=== PATIENT | female | born 1970 | race Caucasian/White ===

== ENCOUNTER → 2016-04-20 | Outpatient (CLI) | payer OTHER ==
[2016-04-20 17:25] LABS: ABSOLUTE EOSINOPHILS # (AUTO) 0.1 10^3/uL (0.0-0.6); ABSOLUTE LYMPHOCYTES (AUTO) 2.3 10^3/uL (0.5-4.7); ABSOLUTE MONOCYTES (AUTO) 0.4 10^3/uL (0.1-1.4); ABSOLUTE NEUT (AUTO) 2.2 10^3/uL (1.7-8.2); BASOPHILS % (AUTO) 0.7 % (0-2); EOSINOPHILS % (AUTO) 2.2 % (0-6); HEMATOCRIT 40.1 % (36.0-47.0); HEMOGLOBIN 13.5 g/dL (12.0-15.5); HGB HCT DIFFERENCE 0.4; MEAN CORPUSCULAR HEMOGLOBIN 32.2 pg (27.0-33.4); MEAN CORPUSCULAR HGB CONC 33.7 g/dL (32.0-36.0); MEAN CORPUSCULAR VOLUME 96 fl (80-97); MONOCYTES % (AUTO) 7.5 % (3-13); RED CELL DISTRIBUTION WIDTH 13.4 % (11.5-14.0); SEGMENTED NEUTROPHILS % (AUTO) 43.6 % (42-78); WHITE BLOOD COUNT 5.1 10^3/uL (4.0-10.5)
[2016-04-20 17:37] LABS: PROTHROMBIN TIME 13.1 SEC (11.4-15.4)
[2016-04-20 17:38] LABS: PARTIAL THROMBOPLASTIN TIME 28.6 SEC (23.5-35.8)
[2016-04-20 17:43] LABS: AMORPHOUS SEDIMENT,URINE TRACE /HPF; APPEARANCE,URINE SLIGHTLY-CLOUDY; BILIRUBIN,URINE NEGATIVE (NEGATIVE); CALCIUM OXALATE CRYSTALS,URINE FEW /HPF; GLUCOSE, URINE NEGATIVE (NEGATIVE); KETONES,URINE NEGATIVE (NEGATIVE); LEUKOCYTE ESTERASE,URINE NEGATIVE (NEGATIVE); NITRITE,URINE NEGATIVE (NEGATIVE); PROTEIN,URINE NEGATIVE (NEGATIVE); URINE SPECIFIC GRAVITY 1.028; UROBILINOGEN,URINE NEGATIVE mg/dL (<2.0)
== END ==
LOC: LAB 17:13
PROVIDERS: ATTEND Pain Medicine Interventional Pain Medicine
DX: G89.4 Chronic pain syndrome (principal)
CPT/HCPCS: 36415; 81001; 85025; 85610; 85730

== ENCOUNTER 2016-06-02 08:11 | Day surgery (SDC) | payer OTHER ==
[2016-05-27 12:33] LABS: AMORPHOUS SEDIMENT,URINE 1+ /HPF; APPEARANCE,URINE CLOUDY; BILIRUBIN,URINE NEGATIVE (NEGATIVE); GLUCOSE, URINE NEGATIVE (NEGATIVE); KETONES,URINE NEGATIVE (NEGATIVE); LEUKOCYTE ESTERASE,URINE NEGATIVE (NEGATIVE); NITRITE,URINE NEGATIVE (NEGATIVE); PROTEIN,URINE NEGATIVE (NEGATIVE); URINE SPECIFIC GRAVITY 1.023; UROBILINOGEN,URINE NEGATIVE mg/dL (<2.0)
[2016-05-27 12:33] LABS: HEMATOCRIT 37.5 % (36.0-47.0); HEMOGLOBIN 12.5 g/dL (12.0-15.5); MEAN CORPUSCULAR HEMOGLOBIN 32.3 pg (27.0-33.4); MEAN CORPUSCULAR HGB CONC 33.4 g/dL (32.0-36.0); MEAN CORPUSCULAR VOLUME 97 fl (80-97); RED BLOOD COUNT 3.88 10^6/uL (3.72-5.28); RED CELL DISTRIBUTION WIDTH 13.8 % (11.5-14.0); WHITE BLOOD COUNT 4.4 10^3/uL (4.0-10.5)
[2016-05-27 12:43] LABS: PARTIAL THROMBOPLASTIN TIME 28.5 SEC (23.5-35.8); PROTHROMBIN TIME 13.6 SEC (11.4-15.4)
--- NOTE | 2016-05-27 21:45 | EKG REPORT ---
SEVERITY:- NORMAL ECG - SINUS RHYTHM : Confirmed by: Georgi Beckman 27-May-2016 21:43:39
[~2016-06-02 08:11] MED LIST: CEFAZOLIN SODIUM 1 GM in DEXTROSE 5%-WATER 50 ML IV PRN; LACTATED RINGERS 1000 ML IV PRN; LIDOCAINE 0.5% INJ-PF (5 MG/ML) 50 ML SDV SUBCUT PRN
[2016-06-02] MEDS ORDERED: LIDOCAINE 1% INJ-PF (10 MG/ML) 30 ML SDV ONE ×2 (08:32→11:35)
[2016-06-02] MEDS ORDERED: BUPIVACAINE HCL 0.25% /EPINEPHRINE INJ/PF 30 ML SDV ONE ×2 (08:32→11:35)
[2016-06-02] MEDS ORDERED: SODIUM BICARBONATE 8.4% INJ 50 MEQ/50 ML DISP.SYRIN ONE (08:32)
[2016-06-02] MEDS: DEXTROSE 50%-WATER 25 GM/50 ML DISP.SYRIN IV ONE ×2 (10:30→10:47)
[2016-06-02] MEDS ORDERED: FENTANYL CITRATE INJ/PF 250 MCG/5 ML AMPULE ONE (10:42)
[2016-06-02] MEDS ORDERED: KETAMINE HCL INJ 500 MG/10 ML VIAL ONE (10:42)
[2016-06-02] MEDS ORDERED: DEXMEDETOMIDINE INJ 80 MCG/20 ML VIAL IV ONE (10:43)
[2016-06-02] MEDS ORDERED: PROPOFOL INJ 200 MG/20 ML VIAL IV ONE (10:43)
[2016-06-02] MEDS ORDERED: MIDAZOLAM 2 MG/2 ML INJ ONE (10:43)
[2016-06-02] MEDS ORDERED: NORMAL SALINE INJ/PF 0.9% 10 ML SDV INJ ONE (11:31)
[2016-06-02] MEDS ORDERED: MEPERIDINE HCL/PF INJ 25 MG/1 ML DISP.SYRIN IV PRN (11:41)
[2016-06-02] MEDS ORDERED: DIPHENHYDRAMINE HCL 50 MG/ML VIAL IV PRN (11:41)
[2016-06-02] MEDS ORDERED: PROMETHAZINE HCL INJ 25 MG/1 ML VIAL IV PRN ×2 (11:41)
[2016-06-02] MEDS ORDERED: MORPHINE SULFATE 10 MG/ML INJ IV PRN (11:41)
[2016-06-02] MEDS ORDERED: FENTANYL CITRATE INJ/PF 100 MCG/2 ML AMPUL IV PRN ×3 (11:41)
[2016-06-02] MEDS ORDERED: OXYCODONE-ACETAMINOPHEN 5-325 MG TABLET PO PRN ×2 (11:41)
[2016-06-02] MEDS ORDERED: CEFAZOLIN INJ 1 GM VIAL ONE (12:37)
[2016-06-02] MEDS ORDERED: HYDROCODONE/ACETAMINOPHEN 5-325 MG TABLET ONE (13:20)
--- NOTE | 2016-06-02 13:43 | OPERATIVE REPORT E ---
Operative Report NAME: KATARINA RAMOS : 1970 AGE: 45Y DATE OF SURGERY: 06/02/2016 ROOM: PREOPERATIVE DIAGNOSIS: Lumbar radiculopathy and chronic pain. POSTOPERATIVE DIAGNOSIS: Lumbar radiculopathy and chronic pain. PROCEDURES PERFORMED: Implantation of permanent spinal cord stimulating system and implantable pulse generator with dual octrode leads, [employer] system implanted. PRIMARY SURGEON: LA PRICE M.D. OFFICE MANAGER RECEPTIONIST: MAIRA GONZALEZ M.D. INTRAVENOUS FLUIDS: 1 L of balanced crystalloid solution. ESTIMATED BLOOD LOSS: 10 mL. ANTIBIOTICS: Ancef 1 gram given perioperatively. OPERATIVE FINDINGS: Two octrode leads placed from the bottom of T7 spanning to the top of T9. OPERATIVE INDICATIONS: The patient is a 45-year-old female with ongoing lumbar radiculopathy. She underwent successful trial with spinal cord stimulator system with [employer] a number of weeks back and elected to proceed with permanent implant. Risks and benefits of permanent implantation were discussed in detail, including, but not limited to, bleeding, bruising, infection, injury to nerves, arteries, veins, paralysis, loss of bowel or bladder dysfunction and potentially even . The patient expressed understanding and agreed to proceed. The patient was accompanied by the anesthesia staff to the operative suite. OPERATIVE DETAILS: The patient was positioned in a prone position. All pressure points were checked and padded. Standard ASA lines and monitors were applied. The planned incision site was marked using AP fluoroscopy. The patient was prepped and draped in sterile fashion using chlorhexidine gluconate solution, an Ioban drape, and a universal drape. C-arm was also draped into the field. The planned incision site was marked and anesthetized with buffered 1% lidocaine. Deeper tissues were infiltrated with 0.25% Bupivacaine and 1:100,000 epinephrine. Additionally, a right-sided buttock implantable pulse generator site was chosen and infiltrated with lidocaine and deeper tissues infiltrated with Bupivacaine as well. The skin was incised using an #15 blade scalpel and deep and electrocautery dissection were then utilized to expose the prevertebral fascia. Adequate hemostasis was ensured. A 3.5-inch 22-gauge spinal needle was advanced under intermittent fluoroscopic guidance to the tract. Plan for the Tuohy needle for insertion of leads. Subsequently, a Tuohy needle provided by the [employer] kit was advanced under intermittent AP fluoroscopic guidance to the L1-L2 interspace. Loss of resistance to the epidural space was gained through a saline technique. Once loss of resistance was obtained, the octrode lead provided by the [employer] kit was advanced into the epidural space and confirmed to be posterior with lateral fluoroscopic guidance. The procedure was performed in the exact same fashion on the left side with Touhy advanced to the L1-2 interspace and lead easily advanced. The leads were advanced under continuous fluoroscopic guidance to the bottom of the T7 vertebral body. Again, posterior placement was confirmed with lateral fluoroscopic views. At this juncture, the patient was awakened and testing of stimulation was performed with the help of a [employer] vendor representatives in the room. The patient had excellent stimulation in all painful areas. A pursestring suture was placed with 0 Mersilene. An additional stay suture for anchoring placed prior to needle and stylette removal from the lead. This was done through both octrode needle sites. The pursestring suture was tied around the anchor provided in the [employer] kit. Both anchors were affixed with no lead migration noted. Attention was then turned to the right buttock pocket, where a pocket for the implantable pulse generator was made with blunt and electrocautery dissection. This was noted to be adequately sized with the template provided in the kit. At this point, tunneling ensued from the midline to the pocket incision after anesthesia with buffered 1% lidocaine. The leads were attached to the implantable pulse generator and impedances were checked and noted to be appropriate. The leads were secured using a Hex wrench, affixing them to the IPG. Copious irrigation was performed with dilute Betadine solution in both incisions. Subsequently, closure ensued in an interrupted fashion with 3-0 Vicryl in deeper tissues. The buttock pocket skin was closed with Dermabond, tape and glue. The midline incision was closed with meaghan. The patient tolerated the procedure well and was accompanied to PACU in stable condition. She will be seen in followup at [facility] within 24 hours. DICTATING PHYSICIAN: LA PRICE M.D. [id number] PHY#: [id number] ID: [id number] JOB#: [id number] ACCT: [id number] cc:LA PRICE M.D. > PARAM
[2016-06-02] MEDS ORDERED: METOCLOPRAMIDE HCL INJ/PF 10 MG/2 ML SDV ONE (14:25)
[2016-06-02] MEDS ORDERED: LIDOCAINE 2% INJ-PF (20 MG/ML) 10 ML AMPUL ONE (14:25)
[2016-06-02] MEDS ORDERED: ONDANSETRON HCL INJ/PF 4 MG/2 ML SDV ONE (14:25)
[2016-06-02] MEDS ORDERED: GLYCOPYRROLATE INJ 0.4 MG/2 ML VIAL ONE (14:25)
[2016-06-02 14:29] VITALS: BP 121/74
== END 2016-06-02 14:15 | disposition home or self-care (01) ==
LOC: OROUT 08:11
PROVIDERS: ATTEND Pain Medicine Interventional Pain Medicine
PROC: 00HU3MZ Insertion of Neurostimulator Lead into Spinal Canal, Percutaneous Approach (ICD-10-PCS; 2016-06-02)
PROC: 0JH70MZ Insertion of Stimulator Generator into Back Subcutaneous Tissue and Fascia, Open Approach (ICD-10-PCS; principal; 2016-06-02 10:30)
DX: M54.17 Radiculopathy, lumbosacral region (principal); G89.4 Chronic pain syndrome; M51.36 Other intervertebral disc degeneration, lumbar region; M51.37 Other intervertebral disc degeneration, lumbosacral region; M54.16 Radiculopathy, lumbar region; M54.2 Cervicalgia; M79.7 Fibromyalgia; M96.1 Postlaminectomy syndrome, not elsewhere classified; M46.1 Sacroiliitis, not elsewhere classified; G43.109 Migraine with aura, not intractable, without status migrainosus; M53.3 Sacrococcygeal disorders, not elsewhere classified; F45.42 Pain disorder with related psychological factors; J45.909 Unspecified asthma, uncomplicated; E03.9 Hypothyroidism, unspecified; M19.90 Unspecified osteoarthritis, unspecified site; G47.9 Sleep disorder, unspecified; G43.909 Migraine, unspecified, not intractable, without status migrainosus; Z79.899 Other long term (current) drug therapy; Z79.891 Long term (current) use of opiate analgesic; Z88.5 Allergy status to narcotic agent; Z88.1 Allergy status to other antibiotic agents; Z91.040 Latex allergy status; Z98.84 Bariatric surgery status
CPT/HCPCS: 63650; 63685; C1820; 300; 36415; 71020; 72070; 81001; 81025; 82962; 85027; 85610; 85730; 93005; 93010; C1778; J0690; J2250; J2405; J2704; J2765; J3010; J3490

== ENCOUNTER → 2016-06-10 | Outpatient (CLI) | payer OTHER ==
[2016-06-10 13:41] LABS: ABSOLUTE EOSINOPHILS # (AUTO) 0.2 10^3/uL (0.0-0.6); ABSOLUTE LYMPHOCYTES (AUTO) 1.8 10^3/uL (0.5-4.7); ABSOLUTE MONOCYTES (AUTO) 0.3 10^3/uL (0.1-1.4); ABSOLUTE NEUT (AUTO) 1.6 10^3/uL (1.7-8.2); BASOPHILS % (AUTO) 0.5 % (0-2); EOSINOPHILS % (AUTO) 4.8 % (0-6); HEMATOCRIT 39.5 % (36.0-47.0); HEMOGLOBIN 12.8 g/dL (12.0-15.5); HGB HCT DIFFERENCE -1.1; LYMPHOCYTES % (AUTO) 45.9 % (13-45); MEAN CORPUSCULAR HEMOGLOBIN 31.4 pg (27.0-33.4); MEAN CORPUSCULAR HGB CONC 32.4 g/dL (32.0-36.0); MEAN CORPUSCULAR VOLUME 97 fl (80-97); MONOCYTES % (AUTO) 7.2 % (3-13); RED BLOOD COUNT 4.08 10^6/uL (3.72-5.28); RED CELL DISTRIBUTION WIDTH 14.2 % (11.5-14.0); SEGMENTED NEUTROPHILS % (AUTO) 41.6 % (42-78); WHITE BLOOD COUNT 3.9 10^3/uL (4.0-10.5)
[2016-06-10 14:18] LABS: ERYTHROCYTE SEDIMENTATION RATE 31 mm/hr (0-20)
== END ==
LOC: OD 11:38
PROVIDERS: ATTEND Pain Medicine Interventional Pain Medicine
DX: T81.4XXA Infection following a procedure, initial encounter (principal)
CPT/HCPCS: 36415; 85025; 85652; 86140

== ENCOUNTER → 2016-09-25 | Outpatient (CLI) | payer OTHER ==
[2016-09-25 14:48] LABS: ABSOLUTE EOSINOPHILS # (AUTO) 0.1 10^3/uL (0.0-0.6); ABSOLUTE LYMPHOCYTES (AUTO) 1.8 10^3/uL (0.5-4.7); ABSOLUTE MONOCYTES (AUTO) 0.3 10^3/uL (0.1-1.4); BASOPHILS % (AUTO) 0.3 % (0-2); EOSINOPHILS % (AUTO) 1.1 % (0-6); HEMATOCRIT 37.9 % (36.0-47.0); HEMOGLOBIN 12.3 g/dL (12.0-15.5); LYMPHOCYTES % (AUTO) 34.7 % (13-45); MEAN CORPUSCULAR HEMOGLOBIN 31.8 pg (27.0-33.4); MEAN CORPUSCULAR HGB CONC 32.5 g/dL (32.0-36.0); MEAN CORPUSCULAR VOLUME 98 fl (80-97); MONOCYTES % (AUTO) 5.4 % (3-13); RED BLOOD COUNT 3.87 10^6/uL (3.72-5.28); RED CELL DISTRIBUTION WIDTH 13.1 % (11.5-14.0); SEGMENTED NEUTROPHILS % (AUTO) 58.5 % (42-78); WHITE BLOOD COUNT 5.1 10^3/uL (4.0-10.5)
[2016-09-25 14:53] LABS: PROTHROMBIN TIME 13.8 SEC (11.4-15.4)
[2016-09-25 14:54] LABS: APPEARANCE,URINE CLOUDY; BILIRUBIN,URINE NEGATIVE (NEGATIVE); GLUCOSE, URINE NEGATIVE (NEGATIVE); KETONES,URINE NEGATIVE (NEGATIVE); LEUKOCYTE ESTERASE,URINE NEGATIVE (NEGATIVE); NITRITE,URINE NEGATIVE (NEGATIVE); PROTEIN,URINE NEGATIVE (NEGATIVE); URINE SPECIFIC GRAVITY 1.021
== END ==
LOC: LAB 14:24
PROVIDERS: ATTEND Pain Medicine Interventional Pain Medicine
DX: T85.122D Displacement of implanted electronic neurostimulator of spinal cord electrode (lead), subsequent encounter (principal)
CPT/HCPCS: 36415; 81001; 85025; 85610; 85730

== ENCOUNTER 2016-09-29 07:45 | Day surgery (SDC) | payer OTHER ==
[~2016-09-29 07:45] MED LIST changes: +BUPIVACAINE HCL 0.25% /EPINEPHRINE INJ/PF 30 ML SDV ONE; +CEFAZOLIN 1 GM/D5W RTU 1 GM/50 ML RTUPB IV PRN; -CEFAZOLIN SODIUM 1 GM in DEXTROSE 5%-WATER 50 ML IV PRN; -LACTATED RINGERS 1000 ML IV PRN; -LIDOCAINE 0.5% INJ-PF (5 MG/ML) 50 ML SDV SUBCUT PRN; +LIDOCAINE 1% INJ-PF (10 MG/ML) 30 ML SDV ONE; +RINGERS SOLUTION,LACTATED 1,000 ML IV PRN; +SODIUM BICARBONATE 8.4% INJ 50 MEQ/50 ML DISP.SYRIN ONE
[2016-09-29] MEDS ORDERED: FENTANYL CITRATE INJ/PF 100 MCG/2 ML AMPUL ONE ×3 (09:08→11:36)
[2016-09-29] MEDS ORDERED: MIDAZOLAM 2 MG/2 ML INJ ONE ×2 (09:08→09:09)
[2016-09-29] MEDS ORDERED: PROPOFOL INJ 200 MG/20 ML VIAL IV ONE (09:09)
[2016-09-29] MEDS ORDERED: MORPHINE SULFATE 10 MG/ML INJ ONE (09:09)
[2016-09-29] MEDS ORDERED: HYDROMORPHONE HCL INJ/PF 2 MG/ML AMPULE ONE (09:13)
[2016-09-29] MEDS ORDERED: PROMETHAZINE HCL INJ 25 MG/1 ML VIAL IV PRN ×2 (09:41)
[2016-09-29] MEDS ORDERED: MEPERIDINE HCL/PF INJ 25 MG/1 ML DISP.SYRIN IV PRN (09:41)
[2016-09-29] MEDS ORDERED: DIPHENHYDRAMINE HCL 50 MG/ML VIAL IV PRN (09:41)
[2016-09-29] MEDS ORDERED: FENTANYL CITRATE INJ/PF 100 MCG/2 ML AMPUL IV PRN ×3 (09:41)
[2016-09-29] MEDS ORDERED: DEXAMETHASONE SOD PHOSPHATE INJ 4 MG/1 ML VIAL ONE ×2 (10:12→14:15)
[2016-09-29] MEDS ORDERED: ONDANSETRON HCL INJ/PF 4 MG/2 ML SDV ONE ×2 (10:12→14:15)
[2016-09-29] MEDS ORDERED: CEFAZOLIN INJ 1 GM VIAL ONE (11:36)
[2016-09-29] MEDS ORDERED: HYDROCODONE/ACETAMINOPHEN 10-325 MG TABLET PO PRN (11:40)
--- NOTE | 2016-09-29 12:04 | OPERATIVE REPORT E ---
Operative Report NAME: KATARINA RAMOS : 1970 AGE: 46Y DATE OF SURGERY: 09/29/2016 ROOM: PREOPERATIVE DIAGNOSIS: Failure/lead migration of spinal cord simulator implant. POSTOPERATIVE DIAGNOSIS: Failure/lead migration of spinal cord stimulator implant. PROCEDURE PERFORMED: Revision of [employer] spinal cord stimulator system with replacement of lead. SURGEON: LA PRICE M.D. IV ANTIBIOTICS: Ancef 1 gram given perioperatively. ANESTHESIA: MAC with sedation. ESTIMATED BLOOD LOSS: Five mL. SPECIMENS REMOVED: Previously placed left lead was removed and discarded and replaced. OPERATIVE FINDINGS: Dual-Octrode leads placed at the bottom of T7 extending to the top of T10. OPERATIVE INDICATIONS: Patient is a 46-year-old female with lumbar radiculopathy. She had previously undergone excellent trial of spinal cord stimulation for pain and had permanent spinal cord stimulator implanted. The patient had an incident where she felt a pop in her back and unfortunately one of her leads migrated quite cephalad from its original position, and therefore, she lost stimulation. As such, decision was made to revise spinal cord stimulator leads with replacement of the left lead. Risks and benefits were discussed with the patient in detail, including but not limited to bleeding, bruising, infection and notably a higher risk of infection with revision than with initial implant, loss of bowel or bladder function, paralysis, and potentially even . The patient expressed understanding and agreed to proceed with the procedure. OPERATIVE DETAIL: The patient was accompanied by anesthesia staff to the operating suite where she was placed in prone position. All pressure points were checked and padded. Standard ASA lines and monitors were applied. The patient was prepped and draped in sterile fashion using DuraPrep solution with iodine and alcohol, given an allergy to chlorhexidine solution. The patient was draped using an Ioban drape and [place] drape. The C-arm was also sterilely draped into the operative field. The leads were visualized under AP fluoroscopy and notably one of the leads was noted to be fractured. Planned incision site was marked on the skin after a time-out procedure was performed as per [facility] standards. The skin was incised after anesthesia with 1% buffered lidocaine over the skin using a 25-gauge needle. Deeper tissues were infiltrated with 0.25% bupivacaine with 1:100,000 epinephrine. Incision was made and notably no electrocautery was used during this portion of the procedure. The leads were easily visualized. The right anchor was noted to be in place and secured, though the silicone portion of the tubular anchor had migrated off of the metallic portion, but the metallic portion was well in place. This was replaced and sutured down. The left-sided lead anchor was noted also to be no longer holding the lead. The lead was easily removed from the epidural space and the anchor and lead were both discarded. At this point, the buttock pocket was additionally opened, as there was no movement of the lead through the anchor and the lead was removed. The skin likewise there was anesthetized with 1% buffered lidocaine and deeper tissues with 0.25% bupivacaine. The IPG was easily removed from the pocket and leads were detached. A spinal needle was advanced for anesthesia to the L1-L2 interspace and the tract for planned lead insertion was anesthetized with 1% lidocaine. Subsequently, a 16-gauge Tuohy needle provided by the [employer] kit was advanced under intermittent AP and lateral fluoroscopic guidance to the L1-L2 interspace and loss of resistance was obtained using normal saline. The lead provided by [employer] was advanced through the Tuohy needle into the posterior epidural space, though some resistance was met at this point. The lead was removed and the needle repositioned and lead then advanced smoothly and was advanced to the top of the T8 vertebral body to the left of the initial lead. At this point, the lead were tested with a [employer] environmental marketing representative and notably all stimulation was found to be on the left of the patient. At this point, decision was made to pull the left-sided lead back and cross to the right to attain better spinal cord stimulation. Multiple attempts were made with standard a standard lead and Stylet. The Stylet was replaced for a stiffer Stylet, but still unable to advance the lead to the right side easily. As such, the lead was removed and at this point a stiff introducer wire was advanced through the needle easily to the right of the previous lead to the top of the T8 interspace. The needle was removed over the introducer wire and subsequently an Introde was placed and easily advanced. The introducer wire was then removed and the original Octrode lead from [employer] was replaced through the Introde. At this point, testing was again performed and the patient had excellent stimulation at all painful areas. The Introde was removed under continuous fluoroscopic guidance to ensure no migration of the lead. Final radiographs confirmed posterior placement of both spinal cord stimulator leads. A pursestring suture was placed with 0 Mersilene around the newly implanted lead and an additional stay suture placed with 0 Mersilene. A new anchor was advanced over the lead and pursestring suture was tied prior to insertion of the anchor into the fascia. The anchor was then secured to the fascia using the pursestring suture and additional 0 Mersilene lead. At this point, the incision was copiously irrigated with dilute Betadine solution. The tunneling device provided by the [facility] [facility] was then utilized to tunnel a tract from the pocket site to the midline incision. The lead were advanced through the tunneling device and connected to the implantable pulse generator. Impedances were noted to be sufficient. Both incisions were then copiously irrigated again with dilute Betadine solution. The leads in the midline of the back were lightly secured using 3-0 Vicryl Pop Offs and the skin incisions were closed using 3-0 Vicryl in interrupted fashion. The midline incision on the back had a dual layer closure. A single layer closure was performed over the implantable pulse generator site. Skin was then subsequently closed with meaghan. The incision sites were dressed with Telfa and gauze, as well as paper tape to avoid further skin irritation. The patient tolerated the procedure well and was accompanied by anesthesia to the postanesthesia recovery unit in stable condition. She will follow up tomorrow postoperatively for wound check at [facility]. DICTATING PHYSICIAN: LA PRICE M.D. [id number] [facility]#: [id number] ID: [id number] JOB#: [id number] ACCT: [id number] cc:LA PRICE M.D. >
--- NOTE | 2016-09-29 12:30 | RADIOLOGY REPORT (SQ) ---
EXAM DESCRIPTION: NO CHG FLUORO; L SPINE 2 VIEWS COMPLETED DATE/TIME: 09/29/2016 11:03 am REASON FOR STUDY: SPINAL STIMULATOR REVISION COMPARISON: MR 03/26/2014 FLUOROSCOPY TIME: 11.2 minutes RADIATION DOSE: 104 mGy. LIMITATIONS: None. PROCEDURE: Images obtained with fluoro document placement of neural stimulator electrodes in the tho racic spine. FINDINGS: Neural stimulator electrodes are placed in the thoracic spine. IMPRESSION: Placement of neural stimulator electrodes. COMMENT: PQRS 6045F: Fluoroscopy time of the procedure is documented in the report. TECHNICAL DOCUMENTATION: JOB ID: [id number] [employer]- All Rights Reserved
--- NOTE | 2016-09-29 12:30 | RADIOLOGY REPORT (SQ) ---
EXAM DESCRIPTION: NO CHG FLUORO; L SPINE 2 VIEWS COMPLETED DATE/TIME: 09/29/2016 11:03 am REASON FOR STUDY: SPINAL STIMULATOR REVISION COMPARISON: MR 03/26/2014 FLUOROSCOPY TIME: 11.2 minutes RADIATION DOSE: 104 mGy. LIMITATIONS: None. PROCEDURE: Images obtained with fluoro document placement of neural stimulator electrodes in the tho racic spine. FINDINGS: Neural stimulator electrodes are placed in the thoracic spine. IMPRESSION: Placement of neural stimulator electrodes. COMMENT: PQRS 6045F: Fluoroscopy time of the procedure is documented in the report. TECHNICAL DOCUMENTATION: JOB ID: [id number] [employer]- All Rights Reserved
[2016-09-29 16:16] VITALS: BP 95/59
== END 2016-09-29 14:05 | disposition home or self-care (01) ==
LOC: OROUT 07:45
PROVIDERS: ATTEND Pain Medicine Interventional Pain Medicine
PROC: 00HU3MZ Insertion of Neurostimulator Lead into Spinal Canal, Percutaneous Approach (ICD-10-PCS; 2016-09-29)
PROC: 0JH70MZ Insertion of Stimulator Generator into Back Subcutaneous Tissue and Fascia, Open Approach (ICD-10-PCS; principal; 2016-09-29 09:30)
DX: M54.17 Radiculopathy, lumbosacral region (principal); R53.1 Weakness; G43.909 Migraine, unspecified, not intractable, without status migrainosus; G40.909 Epilepsy, unspecified, not intractable, without status epilepticus; J45.909 Unspecified asthma, uncomplicated; E03.9 Hypothyroidism, unspecified; E53.8 Deficiency of other specified B group vitamins; Z79.899 Other long term (current) drug therapy; Z98.84 Bariatric surgery status; Z88.3 Allergy status to other anti-infective agents; Z91.040 Latex allergy status; Z88.5 Allergy status to narcotic agent
CPT/HCPCS: 63685; 63650; 72100; C1778; J2250; J3490 ×3; J0690 ×2; J1100; J3010; J1170; J2405; J2704; 300; J2270

== ENCOUNTER → 2017-01-29 | Outpatient (CLI) | payer OTHER | LOC: RAD 16:16 | PROVIDERS: ATTEND Specialist | DX: Z53.9 Procedure and treatment not carried out, unspecified reason (principal) ==

== ENCOUNTER → 2017-02-18 | Outpatient (CLI) | payer OTHER ==
--- NOTE | 2017-02-18 17:22 | RADIOLOGY REPORT (SQ) ---
EXAM DESCRIPTION: CT HEAD COMBO COMPLETED DATE/TIME: 02/18/2017 3:54 pm REASON FOR STUDY: SEIZURES G40.009 LOCAL-REL IDIO EPI W SEIZ OF LOC ONST,NOT NTRCT,W/O COMPARISON: None. TECHNIQUE: Axial images acquired through the brain without and with intravenous contrast. Images re viewed with bone, brain and subdural windows. Images stored on PACS. All CT scanners at this facility use dose modulation, iterative reconstruction, and/or weight based d osing when appropriate to reduce radiation dose to as low as reasonably achievable (ALARA). [facility]: Dose Right [facility]: CareDose [facility]: Dose Right [facility]: Teradose 4D [facility]: Cadec Global CONTRAST TYPE AND DOSE: contrast/concentration: Isovue 370.00 mg/ml; Total Contrast Delivered: 50.0 ml; Total Saline Delivered: 55.0 ml RENAL FUNCTION: Creatinine 0.7 RADIATION DOSE: Up-to-date CT equipment and radiation dose reduction techniques were employed. CTDIv ol: 49.0 mGy. DLP: 1762 mGy-cm.. LIMITATIONS: None. FINDINGS: VENTRICLES: Normal size and contour. CEREBRUM: No masses. No hemorrhage. No midline shift. Normal roach/white matter differentiation. No ev idence for acute infarction. No enhancing lesions. CEREBELLUM: No masses. No hemorrhage. No alteration of density. No evidence for acute infarction. No enhancing lesions. EXTRA-AXIAL SPACES: No fluid collections. No enhancing lesions. ORBITS AND GLOBE: No intra- or extraconal masses. Normal contour of globe without masses. CALVARIUM: No fracture. PARANASAL SINUSES: No fluid or mucosal thickening. SOFT TISSUES: No mass or hematoma. OTHER: No other significant finding. IMPRESSION: NORMAL BRAIN CT WITHOUT AND WITH CONTRAST. EVIDENCE OF ACUTE STROKE: NO. TECHNICAL DOCUMENTATION: JOB ID: [id number] Quality ID # [id number]: Final reports with documentation of one or more dose reduction techniques (e.g., Au tomated exposure control, adjustment of the mA and/or kV according to patient size, use of iterative reconstruction technique) 2010 [employer]- All Rights Reserved
== END ==
LOC: RAD 15:10
PROVIDERS: ATTEND Specialist
DX: G40.009 Localization-related (focal) (partial) idiopathic epilepsy and epileptic syndromes with seizures of localized onset, not intractable, without status epilepticus (principal)
CPT/HCPCS: 70470; 82565

== ENCOUNTER 2017-11-03 16:26 | Emergency (ER) | payer BC, OTHER ==
[2017-11-03] MEDS ORDERED: FENTANYL CITRATE INJ/PF 100 MCG/2 ML AMPUL IV ONE (16:56)
[2017-11-03] MEDS ORDERED: METOCLOPRAMIDE HCL ORAL SOLN 10 MG/10 ML UDCUP PO ONE (16:56)
--- NOTE | 2017-11-03 16:59 | ER Document Report ---
ED Medical Screen (RME) - General Chief Complaint: Abdominal Pain Stated Complaint: ABDOMINAL PAIN Time Seen by Provider: 11/03/17 16:53 Notes: 47 years old female who had cholecystectomy done on last Wednesday presents today with persistent pain since then and increased in intensity today. Associated with nausea. No fever chills or diarrhea. Did not have any bowel movement or gas. She is on pain clinic management for low back pain. TRAVEL OUTSIDE OF THE [place] IN LAST 30 DAYS: No - Related Data Allergies/Adverse Reactions: acetaminophen [From Percocet] Allergy (Severe, Verified 11/03/17 16:29) rash ciprofloxacin [From Cipro] Allergy (Severe, Verified 11/03/17 16:29) rash ibuprofen Allergy (Severe, Verified 11/03/17 16:29) ? latex Allergy (Severe, Verified 11/03/17 16:29) swelling morphine Allergy (Severe, Verified 11/03/17 16:29) ? oxycodone [From Percocet] Allergy (Severe, Verified 11/03/17 16:29) rash Past Medical History - Past Medical History Cardiac Medical History: Denies: Hx Coronary Artery Disease, Hx Heart Attack, Hx Hypertension Pulmonary Medical History: Denies: Hx Asthma, Hx Bronchitis, Hx COPD, Hx Pneumonia Neurological Medical History: Denies: Hx Cerebrovascular Accident, Hx Seizures Renal/ Medical History: Denies: Hx Peritoneal Dialysis Musculoskeltal Medical History: Reports Hx Arthritis - back Past Surgical History: Reports: Hx Abdominal Surgery - GBP, Hx Section , Hx Cholecystectomy, Hx Tonsillectomy - Immunizations Hx Diphtheria, Pertussis, Tetanus Vaccination: Yes Physical Exam - Vital signs Vitals: Temp Pulse Resp BP Pulse Ox 98.4 F 116 H 20 110/67 98 11/03/17 16:32 11/03/17 16:32 11/03/17 16:32 11/03/17 16:32 11/03/17 16:32 Course - Vital Signs Vital signs: Temp Pulse Resp BP Pulse Ox 98.4 F 116 H 20 110/67 98 11/03/17 16:32 11/03/17 16:32 11/03/17 16:32 11/03/17 16:32 11/03/17 16:32 Doctor's Discharge - Discharge Referrals: NI OLIVARES PA [Primary Care Provider] - Follow up as needed
--- NOTE | 2017-11-03 17:58 | RADIOLOGY REPORT (SQ) ---
EXAM DESCRIPTION: ACUTE ABDOMEN SERIES COMPLETED DATE/TIME: 11/03/2017 5:43 pm REASON FOR STUDY: Postsurgical abdominal pain COMPARISON: None. NUMBER OF VIEWS: Three views. TECHNIQUE: Frontal chest, supine abdomen and upright/decubitus abdomen radiographic images acquired. LIMITATIONS: None. FINDINGS: CHEST: Lungs clear of infiltrates. FREE AIR: None. No abnormal gas collections. BOWEL GAS PATTERN: Multiple mildly prominent loops of small bowel are seen within the left hemiabdome n without evidence of high-grade obstruction. No air-fluid levels. Gas and stool are seen to the le young of the rectum. CALCIFICATIONS: No suspicious calcifications. HARDWARE: Thoracic neurostimulator device is present. Cholecystectomy clips are present. SOFT TISSUES: No gross mass or suggestion of organomegaly. BONES: No acute fracture. No worrisome bone lesions. OTHER: No other significant finding. IMPRESSION: Multiple mildly prominent loops of small bowel without evidence of high-grade obstructio n. Given postsurgical setting, favor ileus. TECHNICAL DOCUMENTATION: JOB ID: [id number] [employer]- All Rights Reserved Reading location - IP/workstation name: [email or web address]
[2017-11-03] MEDS ORDERED: NORMAL SALINE 1000 ML 1,000 ML IV ONE (18:30)
[2017-11-03 18:41] LABS: HEMATOCRIT 42.2 % (36.0-47.0); HEMOGLOBIN 13.9 g/dL (12.0-15.5); MEAN CORPUSCULAR HEMOGLOBIN 31.2 pg (27.0-33.4); MEAN CORPUSCULAR VOLUME 94 fl (80-97); PLATELET COUNT 353 10^3/uL (150-450); RED BLOOD COUNT 4.47 10^6/uL (3.72-5.28); RED CELL DISTRIBUTION WIDTH 15.9 % (11.5-14.0); WHITE BLOOD COUNT 22.7 10^3/uL (4.0-10.5)
[2017-11-03 18:51] LABS: APPEARANCE,URINE SLIGHTLY-CLOUDY; BILIRUBIN,URINE NEGATIVE (NEGATIVE); GLUCOSE, URINE NEGATIVE (NEGATIVE); KETONES,URINE TRACE mg/dL (NEGATIVE); LEUKOCYTE ESTERASE,URINE NEGATIVE (NEGATIVE); NITRITE,URINE NEGATIVE (NEGATIVE); PROTEIN,URINE 100 mg/dL (NEGATIVE); URINE SPECIFIC GRAVITY 1.023
[2017-11-03 18:53] LABS: COLOR,URINE YELLOW
[2017-11-03 19:01] LABS: ALANINE AMINOTRANSFERASE 24 U/L (9-52); ALBUMIN 4.4 g/dL (3.5-5.0); ALKALINE PHOSPHATASE 86 U/L (38-126); ANION GAP 15 (5-19); ASPARTATE AMINO TRANSFERASE 20 U/L (14-36); BILIRUBIN,DIRECT 0.4 mg/dL (0.0-0.4); BLOOD UREA NITROGEN 17 mg/dL (7-20); CARBON DIOXIDE 24 mmol/L (22-30); CHLORIDE 104 mmol/L (98-107); GLUCOSE 118 mg/dL (75-110); POTASSIUM 3.9 mmol/L (3.6-5.0); SODIUM 143.2 mmol/L (137-145); TOTAL PROTEIN 8.1 g/dL (6.3-8.2)
[2017-11-03 19:02] LABS: ABSOLUTE LYMPHOCYTES# (MANUAL) 0.9 10^3/uL (0.5-4.7); ABSOLUTE MONOCYTES # (MANUAL) 1.6 10^3/uL (0.1-1.4); ABSOLUTE NEUTROPHILS# (MANUAL) 20.2 10^3/uL (1.7-8.2); ANISOCYTOSIS SLIGHT; BASOPHILS % (MANUAL) 0 % (0-2); EOSINOPHILS % (MANUAL) 0 % (0-6); LIPASE < 10.0 U/L (23-300); LYMPHOCYTES % (MANUAL) 4 % (13-45); MONOCYTES % (MANUAL) 7 % (3-13); PLATELET COMMENT ADEQUATE; SEGMENTED NEUTROPHILS % (MAN) 89 % (42-78); TOTAL CELLS COUNTED 100; TOXIC GRANULATION SLIGHT
[2017-11-03] MEDS ORDERED: ONDANSETRON 4 MG TAB.RAPDIS SL ONE (19:09)
--- NOTE | 2017-11-03 21:03 | ER Document Report ---
ED GI/ - General Chief Complaint: Abdominal Pain Stated Complaint: ABDOMINAL PAIN Time Seen by Provider: 11/03/17 16:53 Mode of Arrival: Ambulatory Information source: Patient TRAVEL OUTSIDE OF THE [place] IN LAST 30 DAYS: No - HPI Patient complains to provider of: Abdominal pain, Vomiting Onset: Last week Timing/Duration: Persistent, Worse Quality of pain: Achy, Fullness, Pressure Severity at maximum: Severe Severity in ED: Severe Pain Level: 5 Location: Epigastric, RUQ Associated symptoms: Nausea, Vomiting Exacerbated by: Movement, Food Relieved by: Denies Similar symptoms previously: Yes Notes: 11/03/17 21:01 Patient is a 47-year-old female presenting to the emergency room complaining of worsening right upper quadrant abdominal pain with nausea and vomiting, patient had a laparoscopic cholecystectomy at [facility] in [place] on Wednesday, she was told by the surgeon to follow-up with her interior painter for appropriate pain control which she did, they prescribed her Dilaudid but she reports that her pain has worsened today, pain is in the right upper quadrant and epigastric region, she denies any fevers, no wound dehiscence, she has not had a bowel movement since her surgery which is not unusual for her, she denies any dysuria or hematuria - Related Data Allergies/Adverse Reactions: acetaminophen [From Percocet] Allergy (Severe, Verified 11/03/17 16:29) rash ciprofloxacin [From Cipro] Allergy (Severe, Verified 11/03/17 16:29) rash ibuprofen Allergy (Severe, Verified 11/03/17 16:29) ? latex Allergy (Severe, Verified 11/03/17 16:29) swelling morphine Allergy (Severe, Verified 11/03/17 16:29) ? oxycodone [From Percocet] Allergy (Severe, Verified 11/03/17 16:29) rash Past Medical History - General Information source: Patient - Social History Smoking Status: Never Smoker Family History: Reviewed & Not Pertinent Patient has suicidal ideation: No Patient has homicidal ideation: No - Past Medical History Cardiac Medical History: Denies: Hx Coronary Artery Disease, Hx Heart Attack, Hx Hypertension Pulmonary Medical History: Denies: Hx Asthma, Hx Bronchitis, Hx COPD, Hx Pneumonia Neurological Medical History: Denies: Hx Cerebrovascular Accident, Hx Seizures Renal/ Medical History: Denies: Hx Peritoneal Dialysis Musculoskeletal Medical History: Reports Hx Arthritis - back Past Surgical History: Reports: Hx Abdominal Surgery - GBP, Hx Section , Hx Cholecystectomy, Hx Tonsillectomy - Immunizations Hx Diphtheria, Pertussis, Tetanus Vaccination: Yes Review of Systems - Review of Systems Constitutional: No symptoms reported EENT: No symptoms reported Cardiovascular: No symptoms reported Respiratory: No symptoms reported Gastrointestinal: See HPI Genitourinary: No symptoms reported Female Genitourinary: No symptoms reported Musculoskeletal: No symptoms reported Skin: No symptoms reported Hematologic/Lymphatic: No symptoms reported Neurological/Psychological: No symptoms reported -: Yes All other systems reviewed and negative Physical Exam - Vital signs Vitals: Temp Pulse Resp BP Pulse Ox 98.4 F 116 H 20 110/67 98 11/03/17 16:32 11/03/17 16:32 11/03/17 16:32 11/03/17 16:32 11/03/17 16:32 Interpretation: Tachycardic - General General appearance: Alert - HEENT Head: Normocephalic, Atraumatic Eyes: Normal Pupils: PERRL - Respiratory Respiratory status: No respiratory distress Chest status: Nontender Breath sounds: Normal Chest palpation: Normal - Cardiovascular Rhythm: Regular Heart sounds: Normal auscultation Murmur: No - Abdominal Inspection: Fresh incision - Laparoscopic incisions with skin adhesive glue in place, clean dry and intact, no erythema Distension: No distension Bowel sounds: Normal Tenderness: Tender - Right upper quadrant and epigastric Organomegaly: No organomegaly - Back Back: Normal, Nontender - Extremities General upper extremity: Normal inspection, Nontender, Normal color, Normal ROM , Normal temperature General lower extremity: Normal inspection, Nontender, Normal color, Normal ROM , Normal temperature, Normal weight bearing. No: Donte's sign - Neurological Neuro grossly intact: Yes Cognition: Normal Orientation: AAOx4 De Coma Scale Eye Opening: Spontaneous Sherborn Coma Scale Verbal: Oriented Sherborn Coma Scale Motor: Obeys Commands De Coma Scale Total: 15 Speech: Normal Motor strength normal: LUE, RUE, LLE, RLE Sensory: Normal - Psychological Associated symptoms: Normal affect, Normal mood - Skin Skin Temperature: Warm Skin Moisture: Dry Skin Color: Normal Course - Re-evaluation Re-evalutation: 11/03/17 22:47 A call was placed to [facility], requested callback from on-call surgeon for Dr. Landon Received a call from Dr. Landon, lab and imaging findings were discussed as well as patient's current condition which is consistent with continued pain that I have been unable to control with large amounts of IV narcotic medications , therefore patient will be transferred to [facility] under Dr. Landon's care, this plan was discussed with patient at bedside as well and she is in agreement - Vital Signs Vital signs: Temp Pulse Resp BP Pulse Ox 98.4 F 116 H 20 110/67 98 11/03/17 16:32 11/03/17 16:32 11/03/17 16:32 11/03/17 16:32 11/03/17 16:32 - Laboratory Result Diagrams: 11/03/17 18:05 11/03/17 18:05 Laboratory results interpreted by me: 11/03/17 11/03/17 11/03/17 18:05 18:05 18:05 WBC 22.7 H RDW 15.9 H Seg Neuts % (Manual) 89 H Lymphocytes % (Manual) 4 L Abs Neuts (Manual) 20.2 H Abs Monocytes (Manual) 1.6 H Glucose 118 H Lipase < 10.0 L Urine Protein 100 H Urine Ketones TRACE H Urine Blood MODERATE H Urine Urobilinogen 2.0 H - Diagnostic Test Radiology reviewed: Image reviewed, Reports reviewed Discharge - Discharge Clinical Impression: Abdominal pain Qualifiers: Abdominal location: right upper quadrant Qualified Code(s): R10.11 - Right upper quadrant pain Condition: Stable Disposition: [facility] Referrals: NI OLIVARES PA [NO LOCAL MD] - Follow up as needed
--- NOTE | 2017-11-03 22:11 | RADIOLOGY REPORT (SQ) ---
EXAM DESCRIPTION: CT ABD/PELVIS WITH IV ONLY COMPLETED DATE/TIME: 11/03/2017 9:44 pm REASON FOR STUDY: ruq pain, recent lap jessica COMPARISON: None. TECHNIQUE: CT scan of the abdomen and pelvis performed using helical scanning technique with dynamic intravenous contrast injection. No oral contrast. Images reviewed with lung, soft tissue, and bone windows. Reconstructed coronal and sagittal MPR images reviewed. Delayed images for evaluation of the urinary system also acquired. All images stored on PACS. All CT scanners at this facility use dose modulation, iterative reconstruction, and/or weight based d osing when appropriate to reduce radiation dose to as low as reasonably achievable (ALARA). [facility]: Dose Right [facility]: CareDose [facility]: Dose Right [facility]: Teradose 4D [facility]: [employer] CONTRAST TYPE AND DOSE: contrast/concentration: Isovue 370.00 mg/ml; Total Contrast Delivered: 74.0 ml; Total Saline Delivered: 31.0 ml RENAL FUNCTION: None required. The patient is less than 50 years old. RADIATION DOSE: CT Rad equipment meets quality standard of care and radiation dose reduction techniq ues were employed. CTDIvol: 10.0 mGy. DLP: 1106 mGy-cm.. LIMITATIONS: None. FINDINGS: LOWER CHEST: There is a small right-sided pleural effusion present. LIVER: Normal size. No masses. No dilated ducts. There is a fluid collection anterior and superior to the liver. SPLEEN: Normal size. No focal lesions. PANCREAS: No masses. No significant calcifications. No adjacent inflammation or peripancreatic fluid collections. Pancreatic duct not dilated. GALLBLADDER: Surgically absent. ADRENAL GLANDS: No significant masses or asymmetry. RIGHT KIDNEY AND URETER: No solid masses. No significant calcifications. No hydronephrosis or hyd roureter. LEFT KIDNEY AND URETER: No solid masses. No significant calcifications. No hydronephrosis or hydr oureter. AORTA AND VESSELS: No aneurysm. No dissection. Renal arteries, SMA, celiac without stenosis. RETROPERITONEUM: No retroperitoneal adenopathy, hemorrhage or masses. BOWEL AND PERITONEAL CAVITY: There are multiple prominent fluid-filled loops of bowel however no kallie k obstruction is present. APPENDIX: Normal. PELVIS: No mass. No free fluid. Normal bladder. ABDOMINAL WALL: Postsurgical changes BONES: No significant or acute findings. OTHER: No other significant finding. IMPRESSION: Small right-sided pleural effusion and fluid collection anterior and superior to the bertrand er. This may be postsurgical in nature. No fluid in Sotelo's pouch or within the mesenteries to s uggest a leak from the cholecystectomy site. The fluid is simple and is not consistent with blood pr oducts. TECHNICAL DOCUMENTATION: JOB ID: [id number] Quality ID # [id number]: Final reports with documentation of one or more dose reduction techniques (e.g., Au tomated exposure control, adjustment of the mA and/or kV according to patient size, use of iterative reconstruction technique) 2010 [employer]- All Rights Reserved Reading location - IP/workstation name: [email or web address]
[2017-11-03] MEDS ORDERED: HYDROMORPHONE HCL INJ/PF 2 MG/ML AMPULE IV ONE (22:28)
[2017-11-03] MEDS ORDERED: PIPERACILLIN/TAZOBACTAM 3.375 GM VIAL IV ONE (22:46)
[2017-11-04] MEDS ORDERED: METOCLOPRAMIDE HCL INJ/PF 10 MG/2 ML SDV IV ONE (00:17)
[2017-11-04] MEDS ORDERED: HYDROMORPHONE HCL INJ/PF 2 MG/ML AMPULE IV ONE (00:17)
[2017-11-04 01:15] VITALS: BP 124/71
== END 2017-11-04 01:25 | disposition short-term general hospital (02) ==
LOC: ER 16:26
DX: R10.11 Right upper quadrant pain (principal); R10.13 Epigastric pain; R11.2 Nausea with vomiting, unspecified; R00.0 Tachycardia, unspecified; Z90.49 Acquired absence of other specified parts of digestive tract; Z88.6 Allergy status to analgesic agent; Z88.1 Allergy status to other antibiotic agents; Z91.040 Latex allergy status; Z88.5 Allergy status to narcotic agent
CPT/HCPCS: 96376; 99285; 96361; 96375; 96365; 36415; 83690; 85025; 80076; 80048; 81001; 74022; 74177; S0119; J3010; J2765; J1170 ×2; J7030; J2543

== ENCOUNTER → 2018-11-28 | Outpatient (CLI) | payer OTHER ==
--- NOTE | 2018-11-28 15:50 | WOMENS IMAGING REPORT ---
EXAM DESCRIPTION: 3D SCREENING MAMMO BILAT COMPLETED DATE/TIME: 11/28/2018 2:26 pm REASON FOR STUDY: Z12.31 SCREENING MAMMO Z12.31 ENCNTR SCREEN MAMMOGRAM FOR MALIGNANT NEOPLASM OF B RE COMPARISON: 2013 EXAM PARAMETERS: Views: Standard craniocaudal and mediolateral oblique views of each breast recorded using digital acquisition and breast tomosynthesis. Read with the assistance of CAD. .[facility] - [employer] Contact [employer]inter Version 9.2 LIMITATIONS: None. FINDINGS: No suspicious masses, suspicious calcifications or architectural distortion. No areas of c oncern. IMPRESSION: NEGATIVE MAMMOGRAM. BIRADS 1. BREAST DENSITY: b. There are scattered areas of fibroglandular density. BIRAD: ASSESSMENT: 1 NEGATIVE RECOMMENDATION: ROUTINE SCREENING COMMENT: The patient has been notified of the results by letter per MQSA requirements. Additional no tification policies are in place for contacting patient with suspicious or incomplete findings. Quality ID #225: The [employer] recommends an annual screening mammogram for women aged 40 years or over. This facility utilizes a reminder system to ensure that all patients receive reminder letters, and/or direct phone calls for appointments. This includes reminders for routine scr eening mammograms, diagnostic mammograms, or other Breast Imaging Interventions when appropriate. Th is patient will be placed in the appropriate reminder system. TECHNICAL DOCUMENTATION: FINDING NUMBER: (1) ASSESSMENT: (1) JOB ID: [id number] [employer]- All Rights Reserved Reading location - IP/workstation name: [email or web address]
== END ==
LOC: WI 14:00
PROVIDERS: ATTEND Obstetrics & Gynecology Gynecology
DX: Z12.31 Encounter for screening mammogram for malignant neoplasm of breast (principal)
CPT/HCPCS: 77063; 77067

== ENCOUNTER 2019-05-30 09:49 | Day surgery (SDC) | payer OTHER ==
[~2019-05-30 09:49] MED LIST changes: -BUPIVACAINE HCL 0.25% /EPINEPHRINE INJ/PF 30 ML SDV ONE; -LIDOCAINE 1% INJ-PF (10 MG/ML) 30 ML SDV ONE; -SODIUM BICARBONATE 8.4% INJ 50 MEQ/50 ML DISP.SYRIN ONE
[2019-05-30 10:46] LABS: HEMATOCRIT 42.5 % (36.0-47.0); HEMOGLOBIN 14.4 g/dL (12.0-15.5); MEAN CORPUSCULAR HEMOGLOBIN 32.9 pg (27.0-33.4); MEAN CORPUSCULAR VOLUME 97 fl (80-97); PLATELET COUNT 279 10^3/uL (150-450); RED BLOOD COUNT 4.38 10^6/uL (3.72-5.28); RED CELL DISTRIBUTION WIDTH 13.4 % (11.5-14.0); WHITE BLOOD COUNT 7.2 10^3/uL (4.0-10.5)
--- NOTE | 2019-05-30 10:49 | RADIOLOGY REPORT (SQ) ---
EXAM DESCRIPTION: CHEST SINGLE VIEW COMPLETED DATE/TIME: 05/30/2019 10:32 am REASON FOR STUDY: PREOP COMPARISON: CT abdomen pelvis 11/03/2017 Chest films 04/03/2013, 08/09/2009 EXAM PARAMETERS: NUMBER OF VIEWS: One view. TECHNIQUE: Single frontal radiographic view of the chest acquired. RADIATION DOSE: NA LIMITATIONS: None. FINDINGS: LUNGS AND PLEURA: No opacities, masses or pneumothorax. No pleural effusion. MEDIASTINUM AND HILAR STRUCTURES: No masses. Contour normal. HEART AND VASCULAR STRUCTURES: Heart normal in size. Normal vasculature. BONES: No acute findings. HARDWARE: Dorsal column stimulator electrodes over the thoracic spine. OTHER: No other significant finding. IMPRESSION: NO ACUTE RADIOGRAPHIC FINDING IN THE CHEST. TECHNICAL DOCUMENTATION: JOB ID: [id number] 2010 [employer]- All Rights Reserved Reading location - IP/workstation name: [email or web address]
[2019-05-30 10:54] LABS: INTERNATIONAL RATION (INR) 0.97; PROTHROMBIN TIME 12.9 SEC (11.4-15.4)
[2019-05-30 10:55] LABS: PARTIAL THROMBOPLASTIN TIME 26.7 SEC (23.5-35.8)
[2019-05-30] MEDS ORDERED: CEFAZOLIN 1 GM/D5W RTU 1 GM/50 ML RTUPB IV ONE (11:14)
[2019-05-30] MEDS ORDERED: SODIUM BICARBONATE 8.4% INJ 50 MEQ/50 ML DISP.SYRIN ONE (12:00)
[2019-05-30] MEDS ORDERED: EPINEPHRINE INJ/PF 1 MG/1 ML AMPULE ONE (12:00)
[2019-05-30] MEDS ORDERED: LIDOCAINE 1% INJ-PF (10 MG/ML) 30 ML SDV ONE ×2 (12:00→12:14)
[2019-05-30] MEDS ORDERED: BUPIVACAINE HCL 0.5 % INJ/PF 30 ML SDV ONE (12:00)
[2019-05-30] MEDS ORDERED: ONDANSETRON HCL INJ/PF 4 MG/2 ML SDV ONE (12:02)
[2019-05-30] MEDS ORDERED: MIDAZOLAM 2 MG/2 ML INJ ONE (12:02)
[2019-05-30] MEDS ORDERED: KETAMINE HCL INJ 500 MG/10 ML VIAL ONE (12:02)
[2019-05-30] MEDS ORDERED: FENTANYL CITRATE INJ/PF 100 MCG/2 ML AMPUL ONE (12:02)
[2019-05-30] MEDS ORDERED: PROPOFOL INJ 200 MG/20 ML VIAL IV ONE (12:03)
[2019-05-30] MEDS ORDERED: BUPIVACAINE HCL 0.5%-EPI 1:200000 INJ/PF 30 ML VIAL ONE (12:51)
[2019-05-30] MEDS ORDERED: PROMETHAZINE HCL INJ 25 MG/1 ML VIAL IV PRN ×2 (12:54)
[2019-05-30] MEDS ORDERED: MEPERIDINE HCL/PF INJ 25 MG/1 ML DISP.SYRIN IV PRN (12:54)
[2019-05-30] MEDS ORDERED: FENTANYL CITRATE INJ/PF 100 MCG/2 ML AMPUL IV PRN ×3 (12:54)
[2019-05-30] MEDS ORDERED: ONDANSETRON HCL INJ/PF 4 MG/2 ML SDV IV PRN ×2 (12:54→13:52)
[2019-05-30] MEDS ORDERED: DIPHENHYDRAMINE HCL 50 MG/ML VIAL IV PRN (12:54)
[2019-05-30] MEDS ORDERED: LIDOCAINE 1% INJ (10 MG/ML) 10 ML MDV INJ ONE ×2 (13:04)
[2019-05-30] MEDS ORDERED: BUPIVACAINE HCL 0.5%-EPI 1:200000 INJ/PF 30 ML VIAL INJ ONE ×2 (13:05)
--- NOTE | 2019-05-30 13:19 | RADIOLOGY REPORT (SQ) ---
EXAM DESCRIPTION: NO CHG FLUORO; SPINE SINGLE VIEW COMPLETED DATE/TIME: 05/30/2019 1:06 pm REASON FOR STUDY: BATTERY REPLACEMENT COMPARISON: None. FLUOROSCOPY TIME: 0.1 minute 4 Images saved to PACS LIMITATIONS: None. PROCEDURE: Battery replacement. FINDINGS: Images from fluoro document the procedure. IMPRESSION: Battery replacement. Refer to operative note for further information. COMMENT: PQRS 6045F: Fluoroscopy time of the procedure is documented in the report. TECHNICAL DOCUMENTATION: JOB ID: [id number] 2010 [employer]- All Rights Reserved Reading location - IP/workstation name: [email or web address]
--- NOTE | 2019-05-30 13:19 | RADIOLOGY REPORT (SQ) ---
EXAM DESCRIPTION: NO CHG FLUORO; SPINE SINGLE VIEW COMPLETED DATE/TIME: 05/30/2019 1:06 pm REASON FOR STUDY: BATTERY REPLACEMENT COMPARISON: None. FLUOROSCOPY TIME: 0.1 minute 4 Images saved to PACS LIMITATIONS: None. PROCEDURE: Battery replacement. FINDINGS: Images from fluoro document the procedure. IMPRESSION: Battery replacement. Refer to operative note for further information. COMMENT: PQRS 6045F: Fluoroscopy time of the procedure is documented in the report. TECHNICAL DOCUMENTATION: JOB ID: [id number] 2010 [employer]- All Rights Reserved Reading location - IP/workstation name: [email or web address]
[2019-05-30] MEDS ORDERED: CEFAZOLIN INJ 1 GM VIAL ONE (13:22)
--- NOTE | 2019-05-30 13:32 | Operative Report ---
Operative Report DATE OF SURGERY: 05/30/19 PREOPERATIVE DIAGNOSIS: End of life spinal cord stimulator implantable pulse ge nerator POSTOPERATIVE DIAGNOSIS: Same OPERATION: 1. Revision of implantable pulse generator pocket 2. Replacement of implantable pulse generator. SURGEON: VIKY PIMENTEL ANESTHESIA: Moderate Sedation TISSUE REMOVED OR ALTERED: Old battery was removed and discarded COMPLICATIONS: None ESTIMATED BLOOD LOSS: 5mL INTRAOPERATIVE FINDINGS: Excellent impedances noted with attachment of new implantable pulse generator PROCEDURE: Date of Surgery: 05/30/2019 Preoperative Diagnosis: Nonfunctional battery at end of life Postoperative Diagnosis:Same Procedure: SCS Battery Replacement Surgeon: Viky Pimentel MD Corrections Nurse: None Anesthesia: MAC Complications: None Procedure Detail: After obtaining informed consent and advising the patient of the risks and benefits, including serious neurological injury, bleeding and infection, allergic reaction and , the patient was taken to the operating room. The patient was placed comfortably in the prone position. Comfort was assessed visually and verbally. The patient was then prepped with alcohol wash and betadine x 3 with a suitable drying time prior to draping. The pulse generator was readily palpable and site marked. The previous incisional scar was anesthetized with 1% lidocaine with bicarbonate, followed by bupivacaine 0.5% with epinephrine. Sharp and blunt dissection were performed down to the pulse generator taking care to avoid the SCS wires. This was readily identified. Electrocautery was minimally necessary for hemostasis. The old generator was removed easily. A small relaxing incision was made in the scar ca psule of the pulse generator pocket to facilitate placement of the new battery. The new generator was connected to the electrodes. All hex nuts were secured. The generator was placed in the pocket and impedance was tested and was felt to be satisfactory. Good connectivity with the new generator was obtained. The wound was then copiously irrigated with Betadine containing irrigation solution. The site was then closed with interrupted vertical mattress sutures with 3-0 Polysorb. The skin came together nicely. The region was cleansed again followed by placement of meaghan. When this was dry, suitable tegaderm sponge dressing was placed. The patient was then taken back to PACU for postoperative care and monitoring.
[2019-05-30] MEDS ORDERED: HYDROCODONE/ACETAMINOPHEN 5-325 MG TABLET PO PRN (13:51)
[2019-05-30 16:44] VITALS: BP 125/70
--- NOTE | 2019-05-30 18:53 | EKG REPORT ---
SEVERITY:- NORMAL ECG - SINUS RHYTHM : Confirmed by: Georgi Beckman 30-May-2019 18:52:37
== END 2019-05-30 14:35 | disposition home or self-care (01) ==
LOC: OROUT 09:49
PROVIDERS: ATTEND Pain Medicine Interventional Pain Medicine
DX: M96.1 Postlaminectomy syndrome, not elsewhere classified (principal); Z79.899 Other long term (current) drug therapy; E03.9 Hypothyroidism, unspecified; J45.909 Unspecified asthma, uncomplicated; G89.4 Chronic pain syndrome; G43.109 Migraine with aura, not intractable, without status migrainosus; M54.17 Radiculopathy, lumbosacral region; F45.42 Pain disorder with related psychological factors; G47.9 Sleep disorder, unspecified; M46.1 Sacroiliitis, not elsewhere classified; M47.816 Spondylosis without myelopathy or radiculopathy, lumbar region; M51.36 Other intervertebral disc degeneration, lumbar region; M51.37 Other intervertebral disc degeneration, lumbosacral region; M53.3 Sacrococcygeal disorders, not elsewhere classified; M54.16 Radiculopathy, lumbar region; M54.2 Cervicalgia; M79.7 Fibromyalgia; Z51.81 Encounter for therapeutic drug level monitoring; Z79.891 Long term (current) use of opiate analgesic
CPT/HCPCS: 36415; 84703; 85027; 85610; 85730; 71045; 72020; 93005; 93010; 00300; 63685; J2250; J3490 ×4; J0690 ×2; J3010; J2405; J2704; 300; J0171

== ENCOUNTER → 2019-11-28 | Outpatient (CLI) | payer OTHER ==
--- NOTE | 2019-11-28 10:06 | WOMENS IMAGING REPORT ---
EXAM DESCRIPTION: 3D SCREENING MAMMO BILAT IMAGES COMPLETED DATE/TIME: 11/28/2019 9:28 am REASON FOR STUDY: Z12.31 ENCNTR SCREEN MAMMOGRAM FOR MALIGNANT NEOPLASM OF BREAST Z12.31 ENCNTR SCR EEN MAMMOGRAM FOR MALIGNANT NEOPLASM OF NO COMPARISON: Digital tomosynthesis bilateral screening mammogram dated 11/28/2018 and digital bilatera l screening mammogram dated 04/14/2013. EXAM PARAMETERS: Standard craniocaudal and mediolateral oblique views of each breast recorded using digital acquisition and breast tomosynthesis. Read with the assistance of CAD. .[facility] - [place] [facility] Assistant Version 9.2 LIMITATIONS: None. FINDINGS: Findings present which are benign by mammographic criteria. No suspicious masses, calcific ations or architectural distortion. Pertinent benign findings: Stable small mass in the mid left breast and focal asymmetries in the suba reolar region of the breast. Benign mammographic findings may include one or more of the following: Smooth masses, popcorn/rim/coa rse calcifications, asymmetries, post-procedure changes, and lesions with long-standing stability. IMPRESSION: BENIGN MAMMOGRAPHIC FINDINGS. BIRADS 2 BREAST DENSITY: b. There are scattered areas of fibroglandular density. BIRAD: ASSESSMENT: 2 BENIGN FINDING(S) RECOMMENDATION: 1. ROUTINE SCREENING COMMENT: The patient has been notified of the results by letter per MQSA requirements. Additional no tification policies are in place for contacting patient with suspicious or incomplete findings. Quality ID #225: The [employer] [place] [employer] recommends an annual screening mammogram for women aged 40 years or over. This facility utilizes a reminder system to ensure that all patients receive reminder letters, and/or direct phone calls for appointments. This includes reminders for routine scr eening mammograms, diagnostic mammograms, or other Breast Imaging Interventions when appropriate. Th is patient will be placed in the appropriate reminder system. TECHNICAL DOCUMENTATION: FINDING NUMBER: (1) ASSESSMENT: (1) JOB ID: [id number] 2010 [employer]- All Rights Reserved Reading location - IP/workstation name: [email or web address]
== END ==
LOC: WI 08:18
PROVIDERS: ATTEND Obstetrics & Gynecology Gynecology
DX: Z12.31 Encounter for screening mammogram for malignant neoplasm of breast (principal)
CPT/HCPCS: 77063; 77067